=== PATIENT | female | born 2000 | race Caucasian/White ===

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

== ENCOUNTER 2018-12-02 21:38 | Inpatient (IN) ==
[2018-12-02] MEDS ORDERED: HALOPERIDOL LACTATE 5 MG/ML 1 ML VIAL IM STA ×2 (21:48→22:32)
[2018-12-02] MEDS ORDERED: LORazepam 2 MG/ML VIAL (IM USE) IM STA ×2 (21:48→22:32)
[2018-12-02 22:31] LABS: Basophils # (auto) 0.04 K/uL (0-0.2); Basophils % (auto) 0.4 %; Eosinophils # (auto) 0.08 K/uL (0-0.5); Eosinophils % (auto) 0.8 %; Hematocrit (blood only) 42.9 % (37-47); Hemoglobin 14.2 g/dL (12.0-16.0); Immature Granulocytes # (auto) 0.02 K/uL (0.00-0.02); Immature Granulocytes % (auto) 0.2 %; Lymphocytes # (auto) 2.54 K/uL (1.2-3.4); Lymphocytes % (auto) 25.5 %; Mean Corpuscular Hgb Conc 33.1 g/dL (32-36); Mean Corpuscular Volume 67.7 fL (80-100); Mean Platelet Volume 9.8 fL (7.4-10.4); Monocytes # (auto) 1.02 K/uL (0.11-0.59); Monocytes % (auto) 10.2 %; Neutrophils # (auto) 6.28 K/uL (1.4-6.5); Neutrophils % (auto) 62.9 %; Platelet Count 242 K/uL (130-400); RDW Coefficient of Variation 16.9 % (11.5-14.5); RDW Standard Deviation 41.1 fL (36.4-46.3); Red Blood Count 6.34 M/uL (4.2-5.4); White Blood Count 9.98 K/uL (4.8-10.8)
[2018-12-02 22:47] LABS: Albumin Level 4.4 gm/dl (3.4-5.0); BUN Creatinine Ratio 12.1 (10-20); Calcium 9.2 mg/dl (8.5-10.1); Creatinine Clr Calc Pharmacy 112.8 ml/min; Est GFR (African American) 112.7; Est GFR (Non-African American) 97.3; Potassium 3.7 mmol/L (3.5-5.1)
[2018-12-02 22:58] LABS: Albumin Globulin Ratio 1.1 (0.9-2); Bilirubin,Total 0.4 mg/dl (0.2-1); Globulin 3.9 gm/dl (2.5-4.0); Total Protein 8.3 gm/dl (6.4-8.2)
[2018-12-02 23:06] LABS: Microcytosis Present; Ovalocytes 1+
[2018-12-02 23:16] LABS: Acetaminophen < 2 ug/ml (10-30); Salicylate < 1.7 mg/dl (2.8-20)
[2018-12-02 23:23] LABS: Appearance Urine Clear (Clear); Bilirubin Urine Negative (Negative); Color Urine Yellow; Glucose Urine UA Negative (Negative); Ketones Urine Negative (Negative); Leukocyte Esterase Urine Negative (Negative); Nitrite Urine Negative (Negative); Protein Urine Negative (Negative); Specific Gravity Urine 1.007 (1.000-1.030); Urobilinogen Urine Negative (Negative); pH Urine 7.5 (4.5-7.5)
[2018-12-02 23:40] LABS: Amphetamines+Metham, Urine Neg (Neg); Barbiturates, Urine Neg (Neg); Benzodiazepine, Urine Neg (Neg); Cocaine, Urine Neg (Neg); MDMA (Ecstacy), Urine Neg (Neg); Methadone, Urine Neg (Neg); Opiate, Urine Neg (Neg); Phencyclidine, Urine Neg (Neg)
[2018-12-02] MEDS ORDERED: HALOPERIDOL 10 MG TABLET PO STA (23:48)
[2018-12-02] MEDS ORDERED: LORazepam 1 MG TAB SL STA (23:48)
[2018-12-03] MEDS ORDERED: SODIUM CHLORIDE 0.65% NA SOLN 45 ML (OCEAN) PRN (01:19)
[2018-12-03] MEDS ORDERED: MAGNESIUM HYDROXIDE SUSP 30 ML UDC PO PRN (01:19)
[2018-12-03] MEDS ORDERED: ACETAMINOPHEN 325 MG TAB PO PRN (01:19)
[2018-12-03] MEDS ORDERED: BISMUTH SUBSALICYLATE PER ML OMNICELL CHARGE PO PRN (01:19)
[2018-12-03] MEDS ORDERED: ALUMINUM/MAGNESIUM SUSP 30 ML UDC PO PRN (01:19)
--- NOTE | 2018-12-03 08:16 | History & Physical ---
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 She received Haldol 10mg and Ativan 2mg in the ER overnight and is now sedated and unable to participate in an assessment. Will need to get records from [facility] as well as her outpatient therapist and psychiatrist in the [place] area to understand previous diagnosis and course of treatment. Inpatient treatment is medically necessary due to the risk of self harm given command AH. (1) Psychosis: 12/03 -continue hospitalization on a 201 voluntary commitment, with a 302 backup petition. Suicide checks for safety given command AH. Continue MNPR due to psychosis. -Get collateral information from family, records from [facility], outpatient psychiatrist and therapist in the [place] area. -Recommend MRI of the brain as an outpatient for new onset psychosis if this has not already been done. -Encourage the patient to attend and participate in groups and therapy on the unit, work on healthy coping skills and discharge safety plan. -Provide psychoeducation about diagnosis and need for treatment. Will need to discuss antipsychotic medication options once she is less sedated and able to participate. In the interim will order haloperidol 5mg po prn psychosis. -Family meeting with parents. 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 Present on Admission?: Yes Inventory Assets Strengths: Supportive family Needs: Local treatment providers, medications to target psychotic symptoms Risk Factors Assessment Male: No : Yes Do You Have Access To A Gun?: No Health Problems: No Mental Health Diagnoses: Yes Substance Use Disorders: No Previous Attempt: No Family History of Suicide: No Previous Psychiatric Hospitalization: Yes Smoker: No Protective Factors Assessment : No Responsible for Young Children: No Employed: No Supportive Family: Yes Psychiatric History Identifying Data ROSCOE MORFIN is a 18-year-old F [employer] student from [place] who has a history of schizophrenia and was admitted on 12/03/18 01:19 on a 201 voluntary commitment for psychosis and command auditory hallucinations. Chief Complaint Patient sedated and unresponsive. History of Present Illness Patient presented to the ER with [employer] with auditory hallucinations, reported hearing voices coming out of the air vents, telling her to cut or strangle herself, and said she was thinking of harming herself. Her parents come to [place] from [place] over the weekend as they were concerned about the patient's worsening psychotic symptoms. They reported she had a similar episode in July 2017, when she presented to our ER and was admitted to [facility], and her parents was diagnosed with schizophrenia. She was started on aripiprazole, but it was stopped over the summer. She had a psychiatrist and therapist in [place], but no local providers. The patient was paranoid and guarded in the ER, said an RA grabbed her arm and "was chasing me around dorm. I was so scared. I was attacked." She was trying to reach her "committee," and talked about "[employer]." She had not slept in a week due to hallucinations and racing thoughts. She said she didn't "feel safe because people from high school hate me and yell at me all the time." Patient stated "I don't know how I am still here. I won't get through this again." She endorsed paranoia that people are trying to attack her , tapping her phone and computer. 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 She received Haldol 10mg and Ativan 2mg in the ER. She could not remember the name of her therapist in the [place] area, and has no local providers. She has not yet signed releases for [facility] or her outpatient psychiatrist's or therapist's records. She has been sleeping since she was admitted overnight. Multiple attempts to arouse her were unsuccessful, as she either did not respond, or woke up only briefly before returning to sleep. Past Psychiatric History Previous Psych History: Patient was seen in our emergency room 06/24/17 for paranoia. She reported being under a lot of stress, paranoia, and thoughts that girls from her high school and her old roommate were spreading rumors about her. Her brother reported that she was paranoid, thought people were out to get her and were talking about her, and had made multiple threats to harm her friends in the past several days and had threatened to kill people. She appeared to be experiencing auditory hallucinations. Her exam, lab workup, and vital signs were essentially normal. She initially refused inpatient treatment , but ultimately agreed to voluntary hospitalization, and was transferred to [facility]. Current Psychiatric Diagnosis: Schizophrenia (per parents, not confirmed with records) Outpatient Services: Was seen a therapist and psychiatrist in [place], [place], but does not recall their names. No mental health care providers in [place]. Previous Psych Admissions: July 2017 to [facility] for psychosis Do You Have Access To A Gun?: No History of Previous Suicide Attempt: No Past Medication Trials: Include but not limited to: Aripiprazole -started at [facility] 07/2017, and tapered off 2017 this patient was doing well. Allergies Allergy/AdvReac Type Severity Reaction Status Date / Time lactose Allergy Unknown GI SYMPTOMS Unverified 12/02/18 23:44 Home Medications Home Medications Medication Instructions Recorded Confirmed Type aripiprazole 2 mg PO HS 12/02/18 12/02/18 History Family History Family History of: Doesn't Know Alcohol History Hx of Alcohol Use Over the Past 12 Months: Yes (occassional; social) AUDIT Total Score: 3 Smoking Use Have You Smoked or Used Tobacco Products in the Last 30 Days: No Smoking Status: Never smoker Substance History Hx of Prescription Med Misuse Over the Past 12 Months: No Hx of Over the Counter Med Misuse Over the Past 12 Months: No Hx of Inhalent Misuse Over the Past 12 Months: No Hx of Organic Substance Use Over the Past 12 Months: No Hx of Illegal Substances/Street Drug Use Over Past 12 Months: No Problems as a Result of Past Substance Use: None Identified Personal History Living Arrangements: Dorm Childhood: From [place], [place]. Raised by both parents. Has at least one brother. Highest Grade Completed: High School Graduate Highest Grade Completed Comment: [employer] student studying education. Employment Status: Student Marital Status: Single Number Of Children: 0 Beliefs That Will Affect Care: None Patient History Medical History Schizophrenic episode, acute Social History Feels Safe at Home: Yes Smoking Status: Never smoker Beliefs That Will Affect Care: None Preferred Language: [place] Communication Ability: Effective Manager Small Business Required: No Review of Systems Unobtainable due to reduced consciousness Physical Exam Psychiatric Lying in bed asleep, unable to arouse despite multiple attempts. Eyes closed. Motor Behavior: no abnormal motor movements Only minimal speech, briefly awoke and asked for food, but immediately fell back asleep. Affect: + constricted affect (To sleeping) Unable to answer Unable to assess Unable to assess Unable to assess Unable to assess Unable to assess Unable to assess Vital Signs (Past 24 Hours) Last Vital Signs Temp 36.6 C 12/03/18 06:48 Pulse 94 H 12/03/18 06:49 Resp 16 12/03/18 06:48 BP 104/68 12/03/18 06:49 Pulse Ox 97 12/03/18 00:31 Results & Data Laboratory Results Laboratory Results - last 24 hr 12/02/18 12/02/18 12/02/18 22:18 22:18 22:19 WBC 9.98 RBC 6.34 H Hgb 14.2 Hct 42.9 MCV 67.7 L MCH 22.4 L MCHC 33.1 RDW Std Deviation 41.1 RDW Coeff of Jerry 16.9 H Plt Count 242 MPV 9.8 Immature Gran % (Auto) 0.2 Neut % (Auto) 62.9 Lymph % (Auto) 25.5 Johnston % (Auto) 10.2 Eos % (Auto) 0.8 Baso % (Auto) 0.4 Immature Gran # (Auto) 0.02 Neut # (Auto) 6.28 Lymph # (Auto) 2.54 Johnston # (Auto) 1.02 H Eos # (Auto) 0.08 Baso # (Auto) 0.04 Microcytosis Present Ovalocytes 1+ Sodium 139 Potassium 3.7 Chloride 105 Carbon Dioxide 27 Anion Gap 7.0 BUN 10 Creatinine 0.86 Est Cr Clr Drug Dosing 112.8 Est GFR ( Amer) 112.7 Est GFR (Non-Af Amer) 97.3 BUN/Creatinine Ratio 12.1 Glucose 97 Calcium 9.2 Total Bilirubin 0.4 AST 33 ALT 35 Alkaline Phosphatase 80 Total Protein 8.3 H Albumin 4.4 Globulin 3.9 Albumin/Globulin Ratio 1.1 TSH 0.410 Urine Color Urine Appearance Urine pH Ur Specific Amorita Urine Protein Urine Glucose (UA) Urine Ketones Urine Blood Urine Nitrite Urine Bilirubin Urine Urobilinogen Ur Leukocyte Esterase POC Ur Test Salicylates Urine Opiates Screen Ur Methadone, Qual Acetaminophen Urine Barbiturates Ur Phencyclidine (PCP) U Amphetamin/Meth Scrn MDMA (Ecstasy) Screen U Benzodiazepines Scrn Ur Cocaine Metabolite U Marijuana (THC) Screen Ethyl Alcohol mg/dL < 3.0 12/02/18 12/02/18 12/02/18 22:19 23:10 23:10 WBC RBC Hgb Hct MCV MCH MCHC RDW Std Deviation RDW Coeff of Jerry Plt Count MPV Immature Gran % (Auto) Neut % (Auto) Lymph % (Auto) Johnston % (Auto) Eos % (Auto) Baso % (Auto) Immature Gran # (Auto) Neut # (Auto) Lymph # (Auto) Johnston # (Auto) Eos # (Auto) Baso # (Auto) Microcytosis Ovalocytes Sodium Potassium Chloride Carbon Dioxide Anion Gap BUN Creatinine Est Cr Clr Drug Dosing Est GFR ( Amer) Est GFR (Non-Af Amer) BUN/Creatinine Ratio Glucose Calcium Total Bilirubin AST ALT Alkaline Phosphatase Total Protein Albumin Globulin Albumin/Globulin Ratio TSH Urine Color Urine Appearance Urine pH Ur Specific Amorita Urine Protein Urine Glucose (UA) Urine Ketones Urine Blood Urine Nitrite Urine Bilirubin Urine Urobilinogen Ur Leukocyte Esterase POC Ur Test NEG Salicylates < 1.7 L Urine Opiates Screen Neg Ur Methadone, Qual Neg Acetaminophen < 2 L Urine Barbiturates Neg Ur Phencyclidine (PCP) Neg U Amphetamin/Meth Scrn Neg MDMA (Ecstasy) Screen Neg U Benzodiazepines Scrn Neg Ur Cocaine Metabolite Neg U Marijuana (THC) Screen Neg Ethyl Alcohol mg/dL 12/02/18 23:10 WBC RBC Hgb Hct MCV MCH MCHC RDW Std Deviation RDW Coeff of Jerry Plt Count MPV Immature Gran % (Auto) Neut % (Auto) Lymph % (Auto) Johnston % (Auto) Eos % (Auto) Baso % (Auto) Immature Gran # (Auto) Neut # (Auto) Lymph # (Auto) Johnston # (Auto) Eos # (Auto) Baso # (Auto) Microcytosis Ovalocytes Sodium Potassium Chloride Carbon Dioxide Anion Gap BUN Creatinine Est Cr Clr Drug Dosing Est GFR ( Amer) Est GFR (Non-Af Amer) BUN/Creatinine Ratio Glucose Calcium Total Bilirubin AST ALT Alkaline Phosphatase Total Protein Albumin Globulin Albumin/Globulin Ratio TSH Urine Color Yellow Urine Appearance Clear Urine pH 7.5 Ur Specific Amorita 1.007 Urine Protein Negative Urine Glucose (UA) Negative Urine Ketones Negative Urine Blood Negative Urine Nitrite Negative Urine Bilirubin Negative Urine Urobilinogen Negative Ur Leukocyte Esterase Negative POC Ur Test Salicylates Urine Opiates Screen Ur Methadone, Qual Acetaminophen Urine Barbiturates Ur Phencyclidine (PCP) U Amphetamin/Meth Scrn MDMA (Ecstasy) Screen U Benzodiazepines Scrn Ur Cocaine Metabolite U Marijuana (THC) Screen Ethyl Alcohol mg/dL Current Inpatient Medications Current Inpatient Medications: Current Inpatient Medications Acetaminophen (Tylenol) 650 mg PO Q4H PRN PRN Reason: Headache or Minor Fever Stop: 01/02/19 01:18 Al Hydrox/Mg Hydrox/Simethicone (Maalox) 30 ml PO Q4H PRN PRN Reason: GI Upset Stop: 01/02/19 01:18 Bismuth Subsalicylate (Kaopectate) 15 ml PO PRN PRN PRN Reason: Loose Stool Stop: 01/02/19 01:18 Hydroxyzine HCl (Vistaril) 25 mg PO Q4H PRN PRN Reason: Anxiety Stop: 01/02/19 01:18 Hydroxyzine HCl (Vistaril) 50 mg PO HSZ PRN PRN Reason: Insomnia Stop: 01/02/19 01:18 Magnesium Hydroxide (Milk Of Magnesia) 30 ml PO DAILY PRN PRN Reason: Heartburn Stop: 01/02/19 01:18 Sodium Chloride ([place] Nasal) 1 - 2 sprays NA PRN PRN PRN Reason: Nasal Dryness/Congestion Stop: 01/02/19 01:18 CPT Code CPT Code Initial Hospital Care: 41061
[2018-12-03] MEDS ORDERED: LORazepam 1 MG TAB PO PRN (10:38)
[2018-12-03] MEDS ORDERED: HALOPERIDOL 5 MG TAB PO PRN (10:38)
--- NOTE | 2018-12-03 18:02 | Emergency Department Note ---
Entered by Joanne Werner acting as a scribe for History of Present Illness General Chief complaint: Mental Health Evaluation Stated complaint: MENTAL HEALTH EVAL Time Seen by Provider: 12/02/18 21:44 Source: patient and family History of Present Illness Onset (ago): day(s) 5 Pain Consistency: + intermittent and + other (increased) Quality: + other (hallucinations) Associated symptoms: + other (lack of sleep) The patient is a 18 year old female who presents to the Emergency Room with complaints of increased episodes of hallucinating that started 5 days ago. The patient has a history of hallucinations since 2017. During her first semester of college, she had issues with her roommates. The patient ended up in the hospital and was sent to [facility] for inpatient care. She was there for a week and was put on Abilify. She was started on 5mg and was doing well so her therapist back home weened her down to 2mg and then was eventually weened off of the medication. Once she stopped her medication, the hallucinations returned. The police were called to the patient's dorm 2 days ago for hallucinations. The parents state the patient was bullied in high school and when she has these hallucinations, she hears voices from high school. The patient has not been sleeping well over the last few days. Per nursing staff, the patient stated the voices have told her to strangle herself and cut herself. She notes she has recently been wanting to act on what these voices have been telling her. Home Medications Home Medications Medication Instructions Recorded Confirmed Type aripiprazole 2 mg PO HS 12/02/18 12/02/18 History Allergies Allergy/AdvReac Type Severity Reaction Status Date / Time lactose Allergy Unknown GI SYMPTOMS Unverified 12/02/18 23:44 Past Med/Surg History Medical History Schizophrenic episode, acute Social History Feels Safe at Home: Yes Smoking Status: Never smoker Beliefs That Will Affect Care: None Preferred Language: Yi Communication Ability: Effective Inclined Railway Operator Required: No Review of Systems See HPI for pertinent positives & negatives. and A total of 10 systems reviewed and were otherwise negative Physical Exam Vital Signs Vital Signs - 24 hr 12/02/18 22:16 12/03/18 00:31 12/03/18 02:45 Temperature 36.8 C Temperature Source Oral Sepsis Recent Fever Within 48 Hours No Sepsis New/Unexplained Change in Mental Status Yes Sepsis Action Taken by Nursing No Action Required Pulse Rate 101 H Pulse Rate [Left Brachial] Pulse Rate [Right] 78 Pulse Rhythm [Left Brachial] Pulse Rhythm [Right] Pulse Strength [Left Brachial] Pulse Strength [Right] Respiratory Rate 18 18 Respiratory Effort / Characteristics Non-Labored Spontaneous Non-Labored Non-Labored Spontaneous Respiratory Depth Normal Normal Normal Respiratory Pattern Regular Regular Blood Pressure 136/83 Blood Pressure [Left Arm] Blood Pressure [Right Arm] 140/83 Blood Pressure Mean 100 Blood Pressure Mean [Left Arm] Blood Pressure Mean [Right Arm] 102 Blood Pressure Position [Left Arm] Blood Pressure Position [Right Arm] Pulse Oximetry 98 97 Oxygen Delivery Method Room Air Room Air 12/03/18 03:19 12/03/18 06:48 12/03/18 06:49 Temperature 36.9 C 36.6 C Temperature Source Oral Oral Sepsis Recent Fever Within 48 Hours Sepsis New/Unexplained Change in Mental Status Sepsis Action Taken by Nursing Pulse Rate Pulse Rate [Left Brachial] 73 94 H Pulse Rate [Right] 72 Pulse Rhythm [Left Brachial] Regular Regular Pulse Rhythm [Right] Regular Pulse Strength [Left Brachial] Normal Normal Pulse Strength [Right] Normal Respiratory Rate 16 16 Respiratory Effort / Characteristics Non-Labored Spontaneous Non-Labored Respiratory Depth Normal Normal Respiratory Pattern Regular Regular Blood Pressure Blood Pressure [Left Arm] 107/69 104/68 Blood Pressure [Right Arm] 127/78 Blood Pressure Mean Blood Pressure Mean [Left Arm] 81 80 Blood Pressure Mean [Right Arm] 94 Blood Pressure Position [Left Arm] Lying Sitting Blood Pressure Position [Right Arm] Lying Pulse Oximetry Oxygen Delivery Method GENERAL: Awake, alert, well-appearing, in no acute distress HENT: Normocephalic, atraumatic. Oropharynx unremarkable. EYES: Normal conjunctiva. Sclera non-icteric. NECK: Supple. No nuchal rigidity. FROM. No JVD. RESPIRATORY: Clear to auscultation. CARDIAC: Regular rate, normal rhythm. Extremities warm and well perfused. Pulses equal. ABDOMEN: Soft, non-distended. No tenderness to palpation. No rebound or guarding. No masses. RECTAL: Deferred. MUSCULOSKELETAL: Chest examination reveals no tenderness. The back is symmetrical on inspection without obvious abnormality. There is no CVA tenderness to palpation. No joint edema. LOWER EXTREMITIES: Calves are equal size bilaterally and non-tender. No edema. No discoloration. NEURO: Normal sensorium. No sensory or motor deficits noted. SKIN: No rash or jaundice noted. PSYCH: Screaming, noncompliant with commands. Course 214: Past medical records reviewed. The patient was evaluated in room A8, and a complete history and physical examination were performed. 0230: The patient was signed out to Dr. Brown at change of shift. Administered Medications Discontinued Medications Haloperidol (Haldol) 10 mg PO NOW STA Stop: 12/02/18 23:49 Last Admin: 12/03/18 00:09 Dose: 10 mg Haloperidol Lactate (Haldol) 5 mg IM NOW STA Stop: 12/02/18 21:49 Last Admin: 12/03/18 00:09 Dose: Not Given Haloperidol Lactate (Haldol) 10 mg IM NOW STA Stop: 12/02/18 22:33 Last Admin: 12/03/18 00:10 Dose: Not Given Lorazepam (Ativan) 2 mg IM NOW STA Stop: 12/02/18 21:49 Last Admin: 12/03/18 00:09 Dose: Not Given Lorazepam (Ativan) 2 mg IM NOW STA Stop: 12/02/18 22:33 Last Admin: 12/03/18 00:09 Dose: Not Given Lorazepam (Ativan) 2 mg SL NOW STA Stop: 12/02/18 23:49 Last Admin: 12/03/18 00:09 Dose: 2 mg Medical Decision Making Differential Diagnosis Differential diagnosis: Etiologies such as mood disorder, infection, hypoglycemia, electrolyte abnormalities, cardiac sources, intracerebral event, toxicologic, neurologic, as well as others were entertained. Medical Records Attestation: I reviewed the patient's medical records. Home Medications Current Medication List: was personally reviewed by me Laboratory Data Attestation: I reviewed the patient's lab results. Result diagrams: 12/02/18 22:19 12/02/18 22:18 Lab Results 12/02/18 12/02/18 12/02/18 Range/Units 22:18 22:18 22:19 WBC 9.98 (4.8-10.8) K/uL RBC 6.34 H (4.2-5.4) M/uL Hgb 14.2 (12.0-16.0) g/dL Hct 42.9 (37-47) % MCV 67.7 L (80-100) fL MCH 22.4 L (25-34) pg MCHC 33.1 (32-36) g/dL RDW Std Deviation 41.1 (36.4-46.3) fL RDW Coeff of Jerry 16.9 H (11.5-14.5) % Plt Count 242 (130-400) K/uL MPV 9.8 (7.4-10.4) fL Immature Gran % (Auto) 0.2 % Neut % (Auto) 62.9 % Lymph % (Auto) 25.5 % [place] % (Auto) 10.2 % Eos % (Auto) 0.8 % Baso % (Auto) 0.4 % Immature Gran # (Auto) 0.02 (0.00-0.02) K/uL Neut # (Auto) 6.28 (1.4-6.5) K/uL Lymph # (Auto) 2.54 (1.2-3.4) K/uL [place] # (Auto) 1.02 H (0.11-0.59) K/uL Eos # (Auto) 0.08 (0-0.5) K/uL Baso # (Auto) 0.04 (0-0.2) K/uL Microcytosis Present Ovalocytes 1+ Sodium 139 (136-145) mmol/L Potassium 3.7 (3.5-5.1) mmol/L Chloride 105 (98-107) mmol/L Carbon Dioxide 27 (21-32) mmol/L Anion Gap 7.0 (3-11) BUN 10 (7-18) mg/dl Creatinine 0.86 (0.6-1.2) mg/dl Est Cr Clr Drug Dosing 112.8 ml/min Est GFR ( Amer) 112.7 Est GFR (Non-Af Amer) 97.3 BUN/Creatinine Ratio 12.1 (10-20) Glucose 97 (70-99) mg/dl Calcium 9.2 (8.5-10.1) mg/dl Total Bilirubin 0.4 (0.2-1) mg/dl AST 33 (15-37) U/L ALT 35 (12-78) U/L Alkaline Phosphatase 80 (45-117) U/L Total Protein 8.3 H (6.4-8.2) gm/dl Albumin 4.4 (3.4-5.0) gm/dl Globulin 3.9 (2.5-4.0) gm/dl Albumin/Globulin Ratio 1.1 (0.9-2) TSH 0.410 (0.300-4.500) uIu/ml Urine Color Urine Appearance (Clear) Urine pH (4.5-7.5) Ur Specific [place] (1.000-1.030) Urine Protein (Negative) Urine Glucose (UA) (Negative) Urine Ketones (Negative) Urine Blood (Negative) Urine Nitrite (Negative) Urine Bilirubin (Negative) Urine Urobilinogen (Negative) Ur Leukocyte Esterase (Negative) POC Ur Test (NEG) Salicylates (2.8-20) mg/dl Urine Opiates Screen (Neg) Ur Methadone, Qual (Neg) Acetaminophen (10-30) ug/ml Urine Barbiturates (Neg) Ur Phencyclidine (PCP) (Neg) U Amphetamin/Meth Scrn (Neg) MDMA (Ecstasy) Screen (Neg) U Benzodiazepines Scrn (Neg) Ur Cocaine Metabolite (Neg) U Marijuana (THC) Screen (Neg) Ethyl Alcohol mg/dL < 3.0 (0-3) mg/dl 12/02/18 12/02/18 12/02/18 Range/Units 22:19 23:10 23:10 WBC (4.8-10.8) K/uL RBC (4.2-5.4) M/uL Hgb (12.0-16.0) g/dL Hct (37-47) % MCV (80-100) fL MCH (25-34) pg MCHC (32-36) g/dL RDW Std Deviation (36.4-46.3) fL RDW Coeff of Jerry (11.5-14.5) % Plt Count (130-400) K/uL MPV (7.4-10.4) fL Immature Gran % (Auto) % Neut % (Auto) % Lymph % (Auto) % [place] % (Auto) % Eos % (Auto) % Baso % (Auto) % Immature Gran # (Auto) (0.00-0.02) K/uL Neut # (Auto) (1.4-6.5) K/uL Lymph # (Auto) (1.2-3.4) K/uL [place] # (Auto) (0.11-0.59) K/uL Eos # (Auto) (0-0.5) K/uL Baso # (Auto) (0-0.2) K/uL Microcytosis Ovalocytes Sodium (136-145) mmol/L Potassium (3.5-5.1) mmol/L Chloride (98-107) mmol/L Carbon Dioxide (21-32) mmol/L Anion Gap (3-11) BUN (7-18) mg/dl Creatinine (0.6-1.2) mg/dl Est Cr Clr Drug Dosing ml/min Est GFR ( Amer) Est GFR (Non-Af Amer) BUN/Creatinine Ratio (10-20) Glucose (70-99) mg/dl Calcium (8.5-10.1) mg/dl Total Bilirubin (0.2-1) mg/dl AST (15-37) U/L ALT (12-78) U/L Alkaline Phosphatase (45-117) U/L Total Protein (6.4-8.2) gm/dl Albumin (3.4-5.0) gm/dl Globulin (2.5-4.0) gm/dl Albumin/Globulin Ratio (0.9-2) TSH (0.300-4.500) uIu/ml Urine Color Urine Appearance (Clear) Urine pH (4.5-7.5) Ur Specific [place] (1.000-1.030) Urine Protein (Negative) Urine Glucose (UA) (Negative) Urine Ketones (Negative) Urine Blood (Negative) Urine Nitrite (Negative) Urine Bilirubin (Negative) Urine Urobilinogen (Negative) Ur Leukocyte Esterase (Negative) POC Ur Test NEG (NEG) Salicylates < 1.7 L (2.8-20) mg/dl Urine Opiates Screen Neg (Neg) Ur Methadone, Qual Neg (Neg) Acetaminophen < 2 L (10-30) ug/ml Urine Barbiturates Neg (Neg) Ur Phencyclidine (PCP) Neg (Neg) U Amphetamin/Meth Scrn Neg (Neg) MDMA (Ecstasy) Screen Neg (Neg) U Benzodiazepines Scrn Neg (Neg) Ur Cocaine Metabolite Neg (Neg) U Marijuana (THC) Screen Neg (Neg) Ethyl Alcohol mg/dL (0-3) mg/dl 12/02/18 Range/Units 23:10 WBC (4.8-10.8) K/uL RBC (4.2-5.4) M/uL Hgb (12.0-16.0) g/dL Hct (37-47) % MCV (80-100) fL MCH (25-34) pg MCHC (32-36) g/dL RDW Std Deviation (36.4-46.3) fL RDW Coeff of Jerry (11.5-14.5) % Plt Count (130-400) K/uL MPV (7.4-10.4) fL Immature Gran % (Auto) % Neut % (Auto) % Lymph % (Auto) % [place] % (Auto) % Eos % (Auto) % Baso % (Auto) % Immature Gran # (Auto) (0.00-0.02) K/uL Neut # (Auto) (1.4-6.5) K/uL Lymph # (Auto) (1.2-3.4) K/uL [place] # (Auto) (0.11-0.59) K/uL Eos # (Auto) (0-0.5) K/uL Baso # (Auto) (0-0.2) K/uL Microcytosis Ovalocytes Sodium (136-145) mmol/L Potassium (3.5-5.1) mmol/L Chloride (98-107) mmol/L Carbon Dioxide (21-32) mmol/L Anion Gap (3-11) BUN (7-18) mg/dl Creatinine (0.6-1.2) mg/dl Est Cr Clr Drug Dosing ml/min Est GFR ( Amer) Est GFR (Non-Af Amer) BUN/Creatinine Ratio (10-20) Glucose (70-99) mg/dl Calcium (8.5-10.1) mg/dl Total Bilirubin (0.2-1) mg/dl AST (15-37) U/L ALT (12-78) U/L Alkaline Phosphatase (45-117) U/L Total Protein (6.4-8.2) gm/dl Albumin (3.4-5.0) gm/dl Globulin (2.5-4.0) gm/dl Albumin/Globulin Ratio (0.9-2) TSH (0.300-4.500) uIu/ml Urine Color Yellow Urine Appearance Clear (Clear) Urine pH 7.5 (4.5-7.5) Ur Specific [place] 1.007 (1.000-1.030) Urine Protein Negative (Negative) Urine Glucose (UA) Negative (Negative) Urine Ketones Negative (Negative) Urine Blood Negative (Negative) Urine Nitrite Negative (Negative) Urine Bilirubin Negative (Negative) Urine Urobilinogen Negative (Negative) Ur Leukocyte Esterase Negative (Negative) POC Ur Test (NEG) Salicylates (2.8-20) mg/dl Urine Opiates Screen (Neg) Ur Methadone, Qual (Neg) Acetaminophen (10-30) ug/ml Urine Barbiturates (Neg) Ur Phencyclidine (PCP) (Neg) U Amphetamin/Meth Scrn (Neg) MDMA (Ecstasy) Screen (Neg) U Benzodiazepines Scrn (Neg) Ur Cocaine Metabolite (Neg) U Marijuana (THC) Screen (Neg) Ethyl Alcohol mg/dL (0-3) mg/dl Blood Pressure Blood Pressure Findings: Normal blood pressure MDM Narrative This is a 18-year-old fit female with a history of hearing voices who presents the emergency department after several days of setting nonsensical text messages to her friends. The patient is clearly not taking care of herself and has been running around in the cold without a jacket on. The patient presents to the emergency department with her parents. Using shared medical decision making with the parents I strongly recommended that we give the patient Haldol and Ativan to get to attempt the patient to sleep. The patient is willing to sign herself in. She does admit to suicidal thoughts. Patient and parents were in agreement with the treatment plan. Impression & Plan Mood disorder Discharge Plan Visit Data *Final* Discharge Date/Time: 12/03/18 02:12 Chief Complaint: Mental Health Evaluation Stated Complaint: MENTAL HEALTH EVAL ED Provider: Camron Redd Discharge Problem: Mood disorder Patient Disposition: Admitted As Inpatient Discharge Instructions Interventions: ED Discharge Assessment Last Done: 12/03/18 02:12 The srideviibe's documentation has been prepared under my direction and personally reviewed by me in its entirety. I confirm that the note above accurately reflects all work, treatment, procedures, and medical decision making performed by me.
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
[2018-12-04] MEDS ORDERED: ARIPiprazole 5 MG TAB PO SCH (22:00)
[2018-12-05 07:51] LABS: Glucose Fasting 83 mg/dl (70-99)
[2018-12-05 07:58] LABS: Chol HDL Ratio 3; Cholesterol 129 mg/dl (0-200); HDL Cholesterol 46 mg/dl; LDL Cholesterol Calculated 75 mg/dl; Triglycerides 40 mg/dl (0-150); VLDL Cholesterol 8 mg/dl
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
[2018-12-05] MEDS: ARIPiprazole 5 MG TAB PO SCH (09:08)
[2018-12-06] MEDS: ARIPiprazole 5 MG TAB PO SCH (08:53)
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
[2018-12-07] MEDS: ARIPiprazole 5 MG TAB PO SCH (21:17)
--- NOTE | 2018-12-08 08:30 | Psychiatric Progress Note ---
Date of Service December 08, 2018 Impression / Recommendations Impression Camryn is taking aripiprazole and is denying auditory hallucinations here, but continues to report delusions of persecution regarding high school classmates and a firm belief that she was attacked by an RA prior to admission. Although she is willing to accept medication, she does not believe she has a mental illness, and is unwilling to consider withdraw from school, and focused on getting back to campus. She becomes extremely irritable with attemps to discuss the recommendations to take some time off school and return home, and has a meeting scheduled with her parents for tomorrow. She is not experiencing hallucinations here, but has limited insight. Inpatient treatment is medically necessary due to ongoing psychosis and high risk for noncompliance and decompensation if discharged prematurely. (1) Psychosis: 12/03 -continue hospitalization on a 201 voluntary commitment, with a 302 backup petition. Suicide checks for safety given command . Continue MNPR due to psychosis. -Get collateral information from family, records from [facility], outpatient psychiatrist and therapist in the [place] area. -Recommend MRI of the brain as an outpatient for new onset psychosis if this has not already been done. -Encourage the patient to attend and participate in groups and therapy on the unit, work on healthy coping skills and discharge safety plan. -Provide psychoeducation about diagnosis and need for treatment. Will need to discuss antipsychotic medication options once she is less sedated and able to participate. In the interim will order haloperidol 5mg po prn psychosis. -Family meeting with parents. 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 12/04 -obtain records from previous psychiatric hospitalization and outpatient mental health providers. -Resume aripiprazole which was previously effective at 5 mg daily -patient states she takes it at night. -Check fasting labs for monitoring on an atypical antipsychotic. -Encourage patient to attend and participate in groups. Reality testing. -Family meeting once patient is less psychotic and able to tolerate-scheduled for Sunday. We will need to discuss disposition, whether she will be withdrawing from school and returning home, and arrange aftercare. 12/05 -differential includes organic cause (no brain MRI per parents and records) , schizophreniform disorder (current episode has been going on for about a month ), schizophrenia, schizoaffective disorder, or psychotic mood disorder ( although this is less likely given the lack of prominent mood symptoms, her symptoms do have an episodic pattern with periods of euthymia/no psychotic symptoms). Her parents are concerned that she sent psychotic text messages to her on committee members. They state they were trying to come get her when she was staying with the RA as she needed treatment, and she "got spooked" and ran away, so the RA called 911 and police located her. -She will need a brain MRI as an outpatient - d/w parents. -FLP and FG WNLs. -Move aripiprazole to [facility], and continue to educate and support medication compliance. -Records from OP psychiatrist, therapist, and [facility] have been reviewed. -Patient repeatedly asking to leave and refusing medications, and there is a 302 petition - consider need to proceed with involuntary commitment if she insists on leaving, given ongoing psychosis and her own report that she feels unsafe outside the hospital. -Family meeting scheduled with parents for tomorrow. This physician spoke to parents at their request and updated them on patient's condition, -Although patient reports she is not safe on campus, she is insisting on returning to school. She is not psychiatrically stable to do so, and would recommend medical withdrawal and return home for intensive outpatient treatment. 12/06 - Family meeting scheduled for today was postponed after patient demonstrated irritability and rigidity this morning - as it was felt the meeting would not be productive until patient gained further insight. - Moved aripiprazole to per patient request - Continue reality orientation as able; she feels she is ready to return to school - but it is agreed at this time that the patient would not be trusted to be safe or successful in that setting at this time. 12/07 -continue aripiprazole. -Family meeting with parents on Sunday. -After decision about disposition is made, aftercare will need to be arranged. 12/08 -continue current plan. Encourage patient to engage in a discussion of the risks of returning to school immediately, which she has not yet been able to do. I did review the treatment recommendations with her today, specifically that she take the rest of the semester off to allow for stabilization of her symptoms prior to returning to school, and that she ensure outpatient treatment is in place locally before returning to school in the future, so that she can continue with therapy and medications to increase her chances of maintaining stability and success in school. She was poorly able to tolerate this discussion. Inventory Assets Strengths: Supportive family Needs: Return to outpatient treatment, medications to target psychotic symptoms Risk Factors Assessment Male: No : Yes Do You Have Access To A Gun?: No Health Problems: No Mental Health Diagnoses: Yes Substance Use Disorders: No Previous Attempt: No Family History of Suicide: No Previous Psychiatric Hospitalization: Yes Smoker: No Protective Factors Assessment : No Responsible for Young Children: No Employed: No Supportive Family: Yes Interval History Identifying Information CAMRYN MORFIN is a 18-year-old [employer] student from [place] who has a history of schizophrenia and was admitted on 12/03/18 01:19 on a 201 voluntary commitment for psychosis and command auditory hallucinations. Chief Complaint "Good, good, I'm feeling great". Review of Systems Sleep Information Total Hours of Sleep: 6.75 Sleep Comments: received a dose of vistaril for sleep aid Meal Information Percent Meal Consumed - Breakfast: 70 Percent Meal Consumed - Lunch: 100 Percent Meal Consumed - Dinner: 100 Nutrition Comment: pt. asleep Summary of Past History Records from outpatient care at [facility] reviewed: Only one psychiatric progress note was sent, from 06/15/2018 (ОЛЕГ Penny). 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 She had been off aripiprazole since mid May, and reported stable mood and no psychotic symptoms. Multiple psychotherapy notes sent from May - June 2018 (Lalita Cunningham LCSW), indicating diagnoses of recurrent major depression and generalized anxiety disorder. They indicated that the patient was euthymic, without active symptoms, was making plans for her future and returning to school. Therapy note from 10/02/2015, at which time the patient reported having a good semester at [employer], was making new friends, had joined extracurricular activities, and was using good coping skills. At that time she was also diagnosed with recurrent major depression and MARTHA. Therapy note from 11/11/2018 indicated the patient was euthymic, reported a good [place] break, and was looking forward to returning to school. She denied symptoms of anxiety and depression. Records from [facility] reviewed: Patient was hospitalized there 07/26/17 through 08/01/17 on a voluntary commitment for psychosis. She reported low mood, anxiety, racing obsessive thoughts, auditory hallucinations, paranoia, delusions, restlessness, disturbed sleep, and had poor insight and judgment. She reported hearing voices in her heating vents at night, coming out of her phone, and believed people were posting lewd and illicit photos of her own social media because a girl in her high school class had abortions. She was tangential, but did not appear manic. She denied any medical problems, substance abuse or psychiatric history. She reported her grades were deteriorating, and was initially diagnosed with schizophreniform disorder, rule out schizophrenia. At the time of discharge, she was diagnosed with schizoaffective disorder, no type specified. She was started on aripiprazole, and cholesterol levels and hemoglobin A1c were normal. She was discharged on aripiprazole 5 mg at bedtime, with a referral to [facility] in [place] for psychiatry and therapy while at school, and to [facility] in [place], [place], when at home. Subjective Subjective Patient was seen & assessed and interval progress reviewed with Nursing. Staff report she was isolated at the beginning of the day, but later attended and participated in groups, and remained fixated on discharge. At times she retreated to her room, but she was more sociable with peers. She had a good visit with her parents, and a family meeting is scheduled for tomorrow. She had difficulty falling asleep, and received hydroxyzine 50 mg. Nursing staff updated her parents on her progress. Parents continue to express concerns about the patient's expressed desire to return to school, including that the stress would overwhelm her and wanting her to take things slowly. On my assessment, the patient continues to deny hallucinations, and insists that she was being harassed by people yelling in her windows in her dorm room, but feels that this will not happen anymore if she is discharged, although cannot explain her reasoning. She says "my real friends knew I needed space this week, that is why they were not bothering me, only the high school kids." She states mood is typically elevated and energetic, and thinks she has returned to mind. She says mood worsened about a week prior to admission because people from her high school "triggered memories of high school," were talking about her and targeting her, causing her to feel "super stressed out" and panicky. She remains focused on discharge, wanting to leave as soon as possible to return to school. She remains unwilling to consider recommendations to take time off school to allow for complete recovery, and becomes very animated in discussing this, insisting that she is an adult, can make her own decisions, and that it would not be fair to prevent her from returning to school. In attempting to discuss the risks, including rapid relapse, more severe symptoms, or behavior that could damage her ability to complete school or work in her chosen field, she is unable to engage in the discussion and becomes increasingly irritable and argumentative. She says that she discounts any recommendations I might give as I am not her outpatient psychiatrist and did not know her family well. She repeatedly states she wants to be discharged as soon as possible, stating that "Thon is the most important thing to me," and says she will refuse to consider any other plan. She also insists that her parents are supportive of her returning to school, and says they do not feel she needs to be hospitalized anymore. Summary of Past History Records from outpatient care at [facility] reviewed: Only one psychiatric progress note was sent, from 06/15/2018 (ОЛЕГ Penny). 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 She had been off aripiprazole since mid May, and reported stable mood and no psychotic symptoms. Multiple psychotherapy notes sent from May - June 2018 (Lalita Cunningham LCSW), indicating diagnoses of recurrent major depression and generalized anxiety disorder. They indicated that the patient was euthymic, without active symptoms, was making plans for her future and returning to school. Therapy note from 10/02/2015, at which time the patient reported having a good semester at [employer], was making new friends, had joined extracurricular activities, and was using good coping skills. At that time she was also diagnosed with recurrent major depression and MARTHA. Therapy note from 11/11/2018 indicated the patient was euthymic, reported a good [place] break, and was looking forward to returning to school. She denied symptoms of anxiety and depression. Records from [facility] reviewed: Patient was hospitalized there 07/26/17 through 08/01/17 on a voluntary commitment for psychosis. She reported low mood, anxiety, racing obsessive thoughts, auditory hallucinations, paranoia, delusions, restlessness, disturbed sleep, and had poor insight and judgment. She reported hearing voices in her heating vents at night, coming out of her phone, and believed people were posting lewd and illicit photos of her own social media because a girl in her high school class had abortions. She was tangential, but did not appear manic. She denied any medical problems, substance abuse or psychiatric history. She reported her grades were deteriorating, and was initially diagnosed with schizophreniform disorder, rule out schizophrenia. At the time of discharge, she was diagnosed with schizoaffective disorder, no type specified. She was started on aripiprazole, and cholesterol levels and hemoglobin A1c were normal. She was discharged on aripiprazole 5 mg at bedtime, with a referral to [facility] in [place] for psychiatry and therapy while at school, and to [facility] in [place], [place], when at home. Physical Exam Mental Examination Overweight white female appearing her stated age. Casually and appropriately dressed, good hygiene and grooming. Seated in no acute distress, with good eye contact and no abnormal movements. Initially cooperative with the assessment, but becomes irritable and argumentative when discussing discharge planning. She reports mood is "good, good, great." Affect is initially elevated, then becomes more irritable. Speech is rapid, loud, frequently interrupting. Thoughts are perseverative, focused on discharge. She denies SI, HI, hallucinations, but continues to report delusions of persecution and paranoia, and insists that she was "attacked" by her her RA prior to admission. She is alert and oriented. Level of intelligence estimated to be at least average. Insight and judgment are impaired. Vital Signs (Past 24 Hours) Last Vital Signs Temp 36.6 C 12/08/18 06:23 Pulse 98 H 12/08/18 06:24 Resp 16 12/08/18 06:23 BP 106/67 12/08/18 06:24 Pulse Ox 97 12/03/18 00:31 Results & Data Current Inpatient Medications Current Inpatient Medications: Current Inpatient Medications Acetaminophen (Tylenol) 650 mg PO Q4H PRN PRN Reason: Headache or Minor Fever Stop: 01/02/19 01:18 Al Hydrox/Mg Hydrox/Simethicone (Maalox) 30 ml PO Q4H PRN PRN Reason: GI Upset Stop: 01/02/19 01:18 Aripiprazole (Abilify) 5 mg PO HS RADHA Stop: 01/06/19 21:59 Last Admin: 12/07/18 21:17 Dose: 5 mg Bismuth Subsalicylate (Kaopectate) 15 ml PO PRN PRN PRN Reason: Loose Stool Stop: 01/02/19 01:18 Haloperidol (Haldol) 5 mg PO Q4H PRN PRN Reason: psychosis Stop: 01/02/19 10:37 Last Admin: 12/04/18 00:05 Dose: 5 mg Hydroxyzine HCl (Vistaril) 25 mg PO Q4H PRN PRN Reason: Anxiety Stop: 01/02/19 01:18 Hydroxyzine HCl (Vistaril) 50 mg PO HSZ PRN PRN Reason: Insomnia Stop: 01/02/19 01:18 Last Admin: 12/07/18 22:39 Dose: 50 mg Lorazepam (Ativan) 1 mg PO Q6H PRN PRN Reason: anxiety or psychosis Stop: 01/02/19 10:37 Magnesium Hydroxide (Milk Of Magnesia) 30 ml PO DAILY PRN PRN Reason: Heartburn Stop: 01/02/19 01:18 Sodium Chloride (Tripp Nasal) 1 - 2 sprays NA PRN PRN PRN Reason: Nasal Dryness/Congestion Stop: 01/02/19 01:18 Post Discharge Appointments Primary Care Physician Name Of Family Doctor: [facility] - Ryan Kennedy Primary Care Provider Appointment Comment: [phone] [facility] [place] Therapist Name of Therapist: [facility] - Lalita Bowers LCSW Therapist's Therapy Appointment Comment: [phone] [id number], [place] [id number] Accounting Advisory Services Manager Name of Accounting Advisory Services Manager: None Contact Information Discharge Discharge Address: [address] [place] [address] CPT Code CPT Code 87285
[2018-12-08] MEDS: ARIPiprazole 5 MG TAB PO SCH (21:18)
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
[2018-12-09] MEDS: ARIPiprazole 5 MG TAB PO SCH (21:04)
--- NOTE | 2018-12-10 08:54 | Discharge Summary ---
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 5 mg Tablet 5 mg PO HS Qty: 30 RF: 0 Stand-Alone Forms: [facility] Discharge Orders: Discharge Order (Routine); Ordered 12/10/18 Ordered By: Sis Solis Admission Data Admit Date/Time: 12/03/18 01:19 Attending Provider: Sis Solis Admit Provider: Sis Solis Primary Care Provider: Karrie Kennedy Other Providers: Sis Solis Service: Psychiatry Other Interventions: Discharge Summary Assessment (RN) Last Done: 12/10/18 08:27 PSY Interdisciplinary Discharge Planning Last Done: 12/10/18 07:57 Pending Studies at Discharge: No
== END 2018-12-10 11:50 | disposition home or self-care (01) | DRG 885 ==
LOC: ED 21:38 → 3S 12-03 01:19
DX: Z91.011 Allergy to milk products; F20.81 Schizophreniform disorder